=== PATIENT | female | born 1985 ===

== ENCOUNTER → 2024-06-20 | Outpatient (CLI) | payer BC ==
[~2024-06-20] MED LIST: COSENTYX P150 MG/11 SC; HYDHCL25 PO
[2024-06-21 09:39] LABS: Candida glabrata-krusei, PCR NOT DETECTED (NOT DETECT)
[2024-06-21 10:38] LABS: Bacterial Vaginosis PCR Positive (NEGATIVE); Candida Group, PCR DETECTED (NOT DETECT)
== END | disposition home or self-care (01) ==
LOC: LAB 19:03 → LAB SHORT 19:03
PROVIDERS: Nurse Practitioner Family
DX: N89.8 Other specified noninflammatory disorders of vagina (principal)
CPT/HCPCS: 81515

== ENCOUNTER → 2024-06-24 | Outpatient (CLI) | payer BC ==
[2024-06-24 21:26] LABS: Chlamydia Trachomatis Cervix NOT DETECTED (NOT DETECT); Neisseria Gonorrhoea Cervix NOT DETECTED (NOT DETECT)
== END ==
LOC: LAB 18:07 → LAB SHORT 18:07
PROVIDERS: Physician Assistant Medical
DX: R30.0 Dysuria (principal); T19.2XXA Foreign body in vulva and vagina, initial encounter; W44.8XXA Other foreign body entering into or through a natural orifice, initial encounter
CPT/HCPCS: 87070; 87077; 87186; 87205; 87491; 87591

== ENCOUNTER → 2024-08-25 | Outpatient (CLI) | payer BC ==
[2024-08-25 17:56] LABS: Candida Group, PCR NOT DETECTED (NOT DETECT); Candida glabrata-krusei, PCR NOT DETECTED (NOT DETECT)
[2024-08-25 21:27] LABS: Bacterial Vaginosis PCR Positive (NEGATIVE)
== END ==
LOC: LAB 15:27 → LAB SHORT 15:27
PROVIDERS: Nurse Practitioner
DX: N89.8 Other specified noninflammatory disorders of vagina (principal)
CPT/HCPCS: 81515; 87086; 87147

== ENCOUNTER 2025-05-13 08:24 | Inpatient (IN) | payer BC ==
[2025-05-13] VITALS (12 sets, daily range): BP systolic 90–113; BP diastolic 50–73
[~2025-05-13] VITALS: Ht 165.1 cm; Wt 53.6 kg
[2025-05-13] MEDS ORDERED: NS 1,000 ML IV SCH ×2 (08:45→12:00)
[2025-05-13] MEDS ORDERED: Ondansetron HCl 2 MG / ML 2ML Vial IV ONE (08:45)
[2025-05-13] MEDS ORDERED: HYDROmorphone HCl/Pf 1MG SYR IV PRN ×3 (08:55→14:35)
[2025-05-13 08:56] LABS: BASOPHILS ABSOLUTE AUTO 0.02 K/mm3 (0.00-0.23); BASOPHILS PERCENT AUTO 0 % (0-2); EOSINOPHILS ABSOLUTE AUTO 0.02 K/mm3 (0.00-0.68); EOSINOPHILS PERCENT AUTO 0 % (0-6); Hematocrit 39.0 % (33.0-51.0); Hemoglobin 13.2 g/dL (11.5-16.0); IMMATURE GRAN ABSOLUTE AUTO 0.04 K/mm3 (0.00-0.10); IMMATURE GRAN PERCENT AUTO 0 % (0-1); LYMPHOCYTES ABSOLUTE AUTO 1.18 K/mm3 (0.84-5.20); LYMPHOCYTES PERCENT AUTO 9 % (21-46); MONOCYTES ABSOLUTE AUTO 0.85 K/mm3 (0.16-1.47); MONOCYTES PERCENT AUTO 6 % (4-13); Mean Corpuscular HGB Conc 33.8 g/dL (31.5-36.5); Mean Corpuscular Volume 94 fL (80-100); NEUTROPHILS ABSOLUTE AUTO 11.30 K/mm3 (1.96-9.15); NEUTROPHILS PERCENT AUTO 84 % (41-73); NRBC ABSOLUTE 0.00 K/mm3 (0.00-0.02); NRBC Auto 0.0 /100 WBC (0.0-0.2); Platelet Count 291 K/mm3 (150-400); RDW Coefficient Variation 12.8 % (11.7-14.2); RDW Standard Deviation 44.6 fL (35.1-46.3)
[2025-05-13 09:15] LABS: Alanine Aminotransfer (ALT/SGP 17.0 U/L (12-78); Albumin, Blood 3.4 g/dL (3.4-5.0); Albumin/Globulin Ratio 1.0 (0.8-1.8); Anion Gap 10.0 mmol/L (3-11); Aspartate Aminotrans (AST/SGOT 11.0 U/L (12-37); Bilirubin, Total 1.2 mg/dL (0.1-1.0); Blood Urea Nitrogen 8.0 mg/dL (8-24); CO2, Blood 23.0 mmol/L (21-32); Calcium, Blood 8.7 mg/dL (8.5-10.1); Chloride, Blood 108.0 mmol/L (98-108); Creatinine, Blood 0.69 mg/dL (0.40-1.00); Globulin, Blood 3.3 g/dL (2.2-4.0); Glucose, Blood 126.0 mg/dL (70-99); Potassium, Blood 3.5 mmol/L (3.5-5.5); Sodium, Blood 137.0 mmol/L (136-145); Total Protein, Blood 6.7 g/dL (6.4-8.2)
[2025-05-13 09:46] LABS: Source, Urine Clean Catch
[2025-05-13 09:56] LABS: Bilirubin, Urine Neg (Neg); Color, Urine Yellow (P-Yellow); Glucose Qualitative, Urine Neg (Neg); Ketones, Urine 4+ (Neg); Leukocyte Esterase, Urine 1+ (Neg); Protein, Urine 2+ (Neg); Specific Gravity, Urine 1.015 (1.003-1.022); Urobilinogen, Urine 1+ (Normal)
[2025-05-13 10:10] LABS: White Blood Cells, Urine 0-2 /hpf (0-5)
[2025-05-13] MEDS ORDERED: MetroNIDAZOLE 500MG/NS 100 ml 100 ML IV ONE (11:55)
[2025-05-13] MEDS ORDERED: CefTRIAXone Sodium 1,000 MG in NS 100 ML IV ONE (11:55)
[2025-05-13] MEDS ORDERED: Bupivacaine 0.5% HCl 5 MG/ML 30MLVIAL ONE (12:57)
[2025-05-13 13:00] LABS: Prothrombin Time Results 12.3 Sec (9.7-11.5)
[2025-05-13] MEDS ORDERED: Rocuronium Bromide 10 MG/ML 5ML Injection IV ONE (13:21)
[2025-05-13] MEDS ORDERED: FentaNYL Citrate 50 MCG/ML 2 ML Injection ONE (13:35)
--- NOTE | 2025-05-13 13:41 | NUR ---
History, Chart, Medications and Allergies reviewed before start of procedure.Patient confirms NPO status SINCE 0715 THIS AM and agrees with scheduled surgery. Pre-Op teaching done. Pt verbalizes understanding.
[2025-05-13] MEDS ORDERED: Ondansetron HCl 2 MG / ML 2ML Vial ONE (13:54)
[2025-05-13] MEDS ORDERED: Dexamethasone Sod Phos 10 MG/ML 1ML VIAL ONE (13:54)
[2025-05-13] MEDS ORDERED: Metoclopramide HCl 5MG / ML 2ML Vial IV PRN (14:30)
[2025-05-13] MEDS ORDERED: FentaNYL Citrate 50 MCG/ML 2 ML Injection IV PRN ×2 (14:30→14:35)
[2025-05-13] MEDS ORDERED: HYDROmorphone HCl/Pf 1MG SYR ONE ×2 (15:33→16:17)
[2025-05-13] MEDS ORDERED: FLU VACC TS2025-26(6MOS UP)/PF 45 MCG/0.5 ML SYRINGE IM SCH (16:00)
[2025-05-13] MEDS ORDERED: D5W-1/2NS KCl 20mEq 1,000 ML IV SCH (16:05)
[2025-05-13] MEDS ORDERED: Ketorolac Tromethamine 15mg Vial IV PRN (16:15)
--- NOTE | 2025-05-13 16:55 | NUR ---
RM 208 PT REPORT RECEIVED FROM PACU. PT ARRIVED AWAKE AND COOEPRATIVE TO BEDSDIE. PT ABLE TO SLIDE SELF OVER. VSS. ICE WATER REQUESTED AND PROVIDED. ABD SOFT FLAT. LAP INCISIONE X4. CD&I. PT DENIES PAIN OR NAUSEA.
[2025-05-13] MEDS ORDERED: NS 250 ML IV PRN (17:30)
[2025-05-13] MEDS ORDERED: MetroNIDAZOLE 500MG/NS 100 ml 100 ML IV SCH (18:00)
--- NOTE | 2025-05-14 03:58 | NUR ---
SUMMARY AMBULATORY FOR [facility].REPORTS PAIN MEDS EFFECTIVE,VOIDING WITHOUT DIFF,ON MENSES.
[2025-05-14 05:20] LABS: BASOPHILS ABSOLUTE AUTO 0.03 K/mm3 (0.00-0.23); BASOPHILS PERCENT AUTO 0 % (0-2); EOSINOPHILS ABSOLUTE AUTO 0.02 K/mm3 (0.00-0.68); EOSINOPHILS PERCENT AUTO 0 % (0-6); Hematocrit 33.0 % (33.0-51.0); Hemoglobin 11.0 g/dL (11.5-16.0); IMMATURE GRAN ABSOLUTE AUTO 0.08 K/mm3 (0.00-0.10); IMMATURE GRAN PERCENT AUTO 1 % (0-1); LYMPHOCYTES ABSOLUTE AUTO 1.15 K/mm3 (0.84-5.20); LYMPHOCYTES PERCENT AUTO 7 % (21-46); MONOCYTES ABSOLUTE AUTO 1.26 K/mm3 (0.16-1.47); MONOCYTES PERCENT AUTO 8 % (4-13); Mean Corpuscular HGB Conc 33.3 g/dL (31.5-36.5); Mean Corpuscular Volume 95 fL (80-100); NEUTROPHILS ABSOLUTE AUTO 13.44 K/mm3 (1.96-9.15); NEUTROPHILS PERCENT AUTO 84 % (41-73); NRBC ABSOLUTE 0.00 K/mm3 (0.00-0.02); NRBC Auto 0.0 /100 WBC (0.0-0.2); Platelet Count 223 K/mm3 (150-400); RDW Coefficient Variation 13.1 % (11.7-14.2); RDW Standard Deviation 45.6 fL (35.1-46.3)
[2025-05-14 05:28] VITALS: BP 94/60
[2025-05-14 05:45] LABS: Anion Gap 8.0 mmol/L (3-11); Blood Urea Nitrogen 8.0 mg/dL (8-24); CO2, Blood 24.0 mmol/L (21-32); Calcium, Blood 7.9 mg/dL (8.5-10.1); Chloride, Blood 110.0 mmol/L (98-108); Creatinine, Blood 0.68 mg/dL (0.40-1.00); Glucose, Blood 123.0 mg/dL (70-99); Potassium, Blood 4.0 mmol/L (3.5-5.5); Sodium, Blood 138.0 mmol/L (136-145)
[2025-05-14 07:47] VITALS: BP 108/64
[2025-05-14] MEDS ORDERED: Enoxaparin 40 MG/0.4 ML SYR SC SCH (09:00)
[2025-05-14] MEDS ORDERED: CefTRIAXone Sodium 1,000 MG in NS 100 ML IV SCH (09:00)
--- NOTE | 2025-05-14 09:36 | NUR ---
discharge instruction reviewed. stated understanding. discharged home with printed instruct.
[2025-05-14] MEDS ORDERED: HYDROmorphone HCl/Pf 1MG SYR IV PRN (10:25)
[2025-05-14 15:15] VITALS: BP 108/74
--- NOTE | 2025-05-14 18:14 | NUR ---
shift summary pt ambulating hallway multiple times today. More painful today than previous per pt. Recently medicated with dilaudid for pain uncontrolled by oxycodone. passing flatus. will continue to monitor.
[2025-05-14 19:21] VITALS: BP 104/63
[2025-05-14] MEDS ORDERED: MetroNIDAZOLE 500MG/NS 100 ml 100 ML IV SCH (22:00)
--- NOTE | 2025-05-15 04:46 | NUR ---
SHIFT SUMMARY RYAN WAS ALERT AND FULLY ORIENTED ON ASSESSMENT. PAIN IS MODERATELY WELL MANAGED. LAP SITES C/D/I. BT'S ACTIVE. DENIES SOB, NAUSEA, CHEST PAIN. AMB/ VOIDING APROPRIATELY / INDEPENDENTLY. DENIZ DIET. NO ACUTE EVENTS OR NOTED CHANGES TO PT CONDITION.
[2025-05-15 04:50] VITALS: BP 92/55
[2025-05-15 05:36] LABS: Hematocrit 33.4 % (33.0-51.0); Hemoglobin 11.0 g/dL (11.5-16.0); Mean Corpuscular HGB Conc 32.9 g/dL (31.5-36.5); Mean Corpuscular Volume 96 fL (80-100); NRBC ABSOLUTE 0.00 K/mm3 (0.00-0.02); NRBC Auto 0.0 /100 WBC (0.0-0.2); Platelet Count 224 K/mm3 (150-400); RDW Coefficient Variation 13.1 % (11.7-14.2); RDW Standard Deviation 46.4 fL (35.1-46.3)
[2025-05-15 06:12] LABS: Albumin, Blood 2.1 g/dL (3.4-5.0); Anion Gap 7 mmol/L (3-11); Blood Urea Nitrogen 5 mg/dL (8-24); CO2, Blood 25 mmol/L (21-32); Calcium, Blood 7.8 mg/dL (8.5-10.1); Chloride, Blood 109 mmol/L (98-108); Creatinine, Blood 0.71 mg/dL (0.40-1.00); Glucose, Blood 112 mg/dL (70-99); Phosphorus, Blood 2.6 mg/dL (2.5-4.9); Potassium, Blood 3.6 mmol/L (3.5-5.5); Sodium, Blood 137 mmol/L (136-145)
[2025-05-15] MEDS ORDERED: Sodium Phosphate Mono/Dibasic 250 MG Tab PO ONE (07:20)
[2025-05-15 07:41] VITALS: BP 102/63
[2025-05-15 17:04] VITALS: BP 107/72
--- NOTE | 2025-05-15 18:36 | NUR ---
SHIFT SUMMARY PT ADVANCED TO REGULAR DIET, SHE WAS ABLE TO EAT SOME OF HER LUNCH AND DINNER BUT ONLY A FEW BITES. SHE CONTINUES TO DRINK PO FLUIDS AND AMBULATE IN THE HALLS, PAIN MANAGED PER EMAR. POSSIBLE DC TOMORROW PER MD. NO ACUTE EVENTS THIS SHIFT, CALL LIGHT IN REACH.
[2025-05-15 19:40] VITALS: BP 108/67
[2025-05-16 04:26] VITALS: BP 112/74
--- NOTE | 2025-05-16 05:01 | NUR ---
SHIFT SUMMARY RYAN WAS ALERT AND FULLY ORIENTED ON ASSESSMENT. PT PAIN WELL MANAGED TONIGHT. LAP SITES CDI. DENIES SOB, CHEST PAIN, NAUSEA. IS PASSING GAS, NO BM YET. AMB/ VOIDING WITHOUT ISSUE. DENIZ PO. NO ACUTE EVENTS TONIGHT. NO NOTED CHANGES TO PT CONDITION.
[2025-05-16 05:47] LABS: Hematocrit 36.6 % (33.0-51.0); Hemoglobin 12.1 g/dL (11.5-16.0); Mean Corpuscular HGB Conc 33.1 g/dL (31.5-36.5); Mean Corpuscular Volume 95 fL (80-100); NRBC ABSOLUTE 0.00 K/mm3 (0.00-0.02); NRBC Auto 0.0 /100 WBC (0.0-0.2); Platelet Count 284 K/mm3 (150-400); RDW Coefficient Variation 13.2 % (11.7-14.2); RDW Standard Deviation 46.5 fL (35.1-46.3)
[2025-05-16 06:30] LABS: Albumin, Blood 2.8 g/dL (3.4-5.0); Anion Gap 7 mmol/L (3-11); Blood Urea Nitrogen 5 mg/dL (8-24); CO2, Blood 27 mmol/L (21-32); Calcium, Blood 8.2 mg/dL (8.5-10.1); Chloride, Blood 108 mmol/L (98-108); Creatinine, Blood 0.73 mg/dL (0.40-1.00); Glucose, Blood 112 mg/dL (70-99); Phosphorus, Blood 3.3 mg/dL (2.5-4.9); Potassium, Blood 3.6 mmol/L (3.5-5.5); Sodium, Blood 138 mmol/L (136-145)
[2025-05-16 07:15] VITALS: BP 110/65
[2025-05-16] MEDS ORDERED: Acetaminophen650 M1 PO (11:48)
[2025-05-16] MEDS ORDERED: ONDA4ODT MM (11:48)
[2025-05-16] MEDS ORDERED: OXAYDO5 M1 PO (11:50)
[2025-05-16] MEDS ORDERED: AMOCLA875 PO (11:54)
[2025-05-16] MEDS ORDERED: Polyethylene Glycol 3350 17 gm PO ONE (12:00)
--- NOTE | 2025-05-16 13:28 | NUR ---
DISCHARGE SUMMARY POD2 LAP APPY, A/OX4, VSS, TOLERATING PO, SHE HAS HAD MINIMAL INTAKE BUT THAT IS MORE DUE TO HER TRYING TO FOLLOW AN ANTI INFLAMMATORY DIET IN WHICH MOST OF OUR FOODS DO NOT FOLLOW THIS. SHE AMBULATES INDEPENDENTLY, VOIDING WELL, SHE HAD A FEW SMALL BM'S THIS AM, PAIN WELL MANAGED. DISCUSSED DC INSTRUCTIONS INCLUDING HOME CARE, MEDICATIONS, AND FOLLOW UP APPOINTMENTS. NO QUESTIONS AT THIS TIME. PROVIDED HER WITH AN ABDOMINAL BINDER PRIOR TO DC. ESCORTED OUT VIA WC TO PRIVATE AUTO TO GO HOME.
== END 2025-05-16 13:07 | disposition home or self-care (01) | DRG 398 ==
LOC: ER 08:24 → SURS 15:59
PROVIDERS: Emergency Medicine; ADMIT Student in an Organized Health Care Education/Training Program
PROC: 8E0W4CZ Robotic Assisted Procedure of Trunk Region, Percutaneous Endoscopic Approach (ICD-10-PCS; 2025-05-13)
PROC: 3E02340 Introduction of Influenza Vaccine into Muscle, Percutaneous Approach (ICD-10-PCS; 2025-05-13)
PROC: 0DTJ4ZZ Resection of Appendix, Percutaneous Endoscopic Approach (ICD-10-PCS; principal; 2025-05-13 13:45)
PROC: 3E03329 Introduction of Other Anti-infective into Peripheral Vein, Percutaneous Approach (ICD-10-PCS; 2025-05-14)
DX: K35.32 Acute appendicitis with perforation, localized peritonitis, and gangrene, without abscess (principal); N39.0 Urinary tract infection, site not specified; L40.50 Arthropathic psoriasis, unspecified; F17.210 Nicotine dependence, cigarettes, uncomplicated; Z88.5 Allergy status to narcotic agent; Z79.899 Other long term (current) drug therapy; Z98.51 Tubal ligation status; Z23 Encounter for immunization
CPT/HCPCS: 36415; 74177; 80048; 80053; 80069; 81001; 81025; 83605; 83690; 85025; 85027; 85610; 86850; 86900; 86901; 87086; 96361-59; 96365-59; 96367-59; 96375-59; 96376-59; 99285-25; A9270; J0696; J1100; J1171; J1650; J1885; J2405; J2704; J3010; J7030; J7050; J7120; Q9967